=== PATIENT | male | born 1975 | race Caucasian/White ===

== ENCOUNTER 2020-02-01 18:56 | Emergency (ER) | payer BC, OTHER ==
[~2020-02-01] VITALS: Ht 177 cm; Wt 92.0 kg
--- OUTSIDE RECORDS SUMMARY | 2020-02-01 19:08 | XMS REPORT | Continuity of Care Document ---
Author Organization Unknown Address Unknown Phone Unavailable Allergies Active Description Code Type Severity Reaction Onset Reported/Identified Relationship to Patient Clinical Status Yes hydrocodone [id number] Drug Aller gy Unknown N/A 02/01/2020 Yes morphine [id number] Drug Allergy Unknown N/A 02/01/2020 Medications There is no data. Problems There is no data. Procedures There is no data. Results Test Result Range C-PEPTIDE, SERUM - 04/28/19 17:27 C-PEPTIDE 1.25 ng/mL 0.80-3.85 A1C - 04/28/19 17:27 HEMOGLOBIN A1c >14.0 % of total Hgb <5.7 Encounters ACCT No. Visit Date/Time Discharge Status Pt. Type Provider Facility Loc./Unit Complaint [id number] 01/28/2020 08:00:00 01/28/2020 23:59: 59 CLS Outpatient SELF, FRANCISCA Perez [facility] [id number] 04/28/2019 15:30:00 Document Registration [id number] 02/01/2020 18:57:[address] Emergency JUVE DE LA ROSA DO [facility] ER FS NAUSEA,DIZZY
--- NOTE | 2020-02-01 19:18 | ED General ---
General Chief Complaint: General Problems/Pain Stated Complaint: NAUSEA,DIZZY Source of Information: Patient Exam Limitations: No Limitations History of Present Illness Date Seen by Provider: Feb 01, 2020 Time Seen by Provider: 19:10 Initial Comments The patient is a 44-year-old male presents for evaluation of on and off lightheadedness for the last 2 weeks. He mentions that he had a few episodes of nausea and vomiting this morning but none since that time. He also states the right posterolateral neck has been sore for about a week but is improving. 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 He is diabetic and states that his sugars have been well controlled lately but earlier today was 280. He denies chest pain or shortness of breath, cough, loss of taste or smell, headache, neck stiffness, fevers or chills, abdominal discomfort, back or flank pain, urinary complaints, palpitations or syncope. He is alert and oriented 4, calm, and appears to be in no distress at this time. Timing/Duration: Other (1-2 weeks) Severity: Mild Associated Systoms: Nausea/Vomiting Allergies and Home Medications Allergies Coded Allergies: hydrocodone (Verified Allergy, Unknown, 02/01/20) morphine (Verified Allergy, Unknown, 02/01/20) Patient Home Medication List Home Medication List Reviewed: Yes Review of Systems Review of Systems Constitutional: no symptoms reported, dizziness (described as lightheadedness) EENTM: no symptoms reported Respiratory: no symptoms reported Cardiovascular: no symptoms reported Gastrointestinal: nausea, vomiting Genitourinary: no symptoms reported Musculoskeletal: no symptoms reported Skin: no symptoms reported Psychiatric/Neurological: No Symptoms Reported Hematologic/Lymphatic: No Symptoms Reported Immunological/Allergic: no symptoms reported All Other Systems Reviewed Negative Unless Noted: Yes Past Zrcmsfo-Rqczoh-Qhfair Hx Past Med/Social Hx: Reviewed Nursing Past Med/Soc Hx Patient Social History Alcohol Use: Denies Use Recreational Drug Use: No Type Used: Smokeless Tobacco 2nd Hand Smoke Exposure: No Recent Foreign Travel: No Contact w/Someone Who Travel: No Recent Hopitalizations: No Physical Abuse: No Sexual Abuse: No Past Medical History Surgeries: Yes Gallbladder Respiratory: No Cardiac: Yes High Cholesterol, Hypertension Neurological: No Genitourinary: No Gastrointestinal: No Musculoskeletal: No Endocrine: Yes Diabetes, Insulin dep HEENT: No Cancer: No Psychosocial: No Integumentary: No Blood Disorders: No Physical Exam Vital Signs Vital Signs - First Documented 02/01/20 19:06 Temp 36.9 Pulse 92 Resp 16 B/P (MAP) 188/111 (136) Pulse Ox 99 O2 Delivery Room Air Capillary Refill : Height, Weight, BMI Height: '" Weight: lbs. oz. kg; BMI Method: General Appearance: No Apparent Distress, WD/WN Eyes: Bilateral Eye Normal Inspection, Bilateral Eye PERRL, Bilateral Eye EOMI HEENT: PERRL/EOMI, Normal ENT Inspection, Pharynx Normal Neck: Full Range of Motion, Normal Inspection, Supple, Tender Lateral (patient tenderness to the right paraspinal muscles at approximately the level of C3 to 4 with a muscle spasm, no midline tenderness, full range of motion of the cervical spine is present) Respiratory: Lungs Clear, Normal Breath Sounds, No Accessory Muscle Use, No Respiratory Distress Cardiovascular: Regular Rate, Rhythm, No Edema, No Murmur, Normal Peripheral Pulses Gastrointestinal: Normal Bowel Sounds, Non Tender, Soft Extremity: Normal Capillary Refill, Normal Range of Motion, Non Tender, No Calf Tenderness Neurologic/Psychiatric: Alert, Oriented x3, No Motor/Sensory Deficits, Normal Mood/Affect Skin: Normal Color, Warm/Dry Progress/Results/Core Measures Suspected Sepsis SIRS Temperature: Pulse: Respiratory Rate: Laboratory Tests 02/01/20 19:19: White Blood Count 6.7 Blood Pressure / Mean: Laboratory Tests 02/01/20 19:19: Creatinine 0.95, Platelet Count 346, Total Bilirubin 0.2 Results/Orders Lab Results Laboratory Tests Test 02/01/20 19:15 02/01/20 19:19 Range/Units Urine Color YELLOW Urine Clarity CLEAR Urine pH 5.5 5-9 Urine Specific [place] 1.020 1.016-1.022 Urine Protein 2+ H NEGATIVE Urine Glucose (UA) 3+ H NEGATIVE Urine Ketones NEGATIVE NEGATIVE Urine Nitrite NEGATIVE NEGATIVE Urine Bilirubin NEGATIVE NEGATIVE Urine Urobilinogen 0.2 < = 1.0 MG/DL Urine Leukocyte Esterase NEGATIVE NEGATIVE Urine RBC (Auto) TRACE H NEGATIVE Urine RBC RARE /HPF Urine WBC NONE /HPF Urine Crystals NONE /LPF Urine Bacteria NONE /HPF Urine Casts NONE /LPF Urine Mucus NEGATIVE /LPF Urine Culture Indicated NO White Blood Count 6.7 4.3-11.0 10^3/uL Red Blood Count 5.13 4.35-5.85 10^6/uL Hemoglobin 14.9 13.3-17.7 G/DL Hematocrit 44 40-54 % Mean Corpuscular Volume 86 80-99 FL Mean Corpuscular Hemoglobin 29 25-34 PG Mean Corpuscular Hemoglobin Concent 34 32-36 G/DL Red Cell Distribution Width 12.6 10.0-14.5 % Platelet Count 346 130-400 10^3/uL Mean Platelet Volume 9.8 7.4-10.4 FL Neutrophils (%) (Auto) 57 42-75 % Lymphocytes (%) (Auto) 29 12-44 % Monocytes (%) (Auto) 9 0-12 % Eosinophils (%) (Auto) 5 0-10 % Basophils (%) (Auto) 2 0-10 % Neutrophils # (Auto) 3.8 1.8-7.8 X 10^3 Lymphocytes # (Auto) 1.9 1.0-4.0 X 10^3 Monocytes # (Auto) 0.6 0.0-1.0 X 10^3 Eosinophils # (Auto) 0.3 0.0-0.3 10^3/uL Basophils # (Auto) 0.1 0.0-0.1 10^3/uL Sodium Level 135 135-145 MMOL/L Potassium Level 5.0 3.6-5.0 MMOL/L Chloride Level 101 98-107 MMOL/L Carbon Dioxide Level 22 21-32 MMOL/L Anion Gap 12 5-14 MMOL/L Blood Urea Nitrogen 22 H 7-18 MG/DL Creatinine 0.95 0.60-1.30 MG/DL Estimat Glomerular Filtration Rate > 60 BUN/Creatinine Ratio 23 Glucose Level 302 H 70-105 MG/DL Calcium Level 9.5 8.5-10.1 MG/DL Corrected Calcium 9.6 8.5-10.1 MG/DL Total Bilirubin 0.2 0.1-1.0 MG/DL Aspartate Amino Transf (AST/SGOT) 16 5-34 U/L Alanine Aminotransferase (ALT/SGPT) 20 0-55 U/L Alkaline Phosphatase 61 40-136 U/L Total Protein 7.2 6.4-8.2 GM/DL Albumin 3.9 3.2-4.5 GM/DL Amylase Level 36 25-125 U/L Lipase 51 8-78 U/L My Orders Orders - RJ AN DO Amylase (02/01/20 18:57) Cbc With Automated Diff (02/01/20 18:57) Comprehensive Metabolic Panel (02/01/20 18:57) Lipase (02/01/20 18:57) Ua Culture If Indicated (02/01/20 18:57) Ed Iv/Invasive Line Start (02/01/20 18:57) Ekg Tracing (02/01/20 18:57) Continuous Ekg Monitoring (02/01/20 18:57) Vital Signs/I&O 02/01/20 19:06 Temp 36.9 Pulse 92 Resp 16 B/P (MAP) 188/111 (136) Pulse Ox 99 O2 Delivery Room Air Capillary Refill : Progress Note : Progress Note @2004 - patient updated on lab results which are acutely unremarkable other than some hyperglycemia. Advised the patient to follow up with his PCP in the next 1- 2 days and to return to the emergency Department immediately for new or worsening symptoms. The patient expresses verbal understanding and agreement with the plan and is stable for discharge. ECG Comment EKG@1909 - Normal sinus rhythm, rate of 87, left axis deviation present, no acute ischemic findings noted, no STEMI, reviewed and interpreted by myself Departure Impression Primary Impression: Lightheadedness Disposition: 01 HOME, SELF-CARE Condition: Stable Departure-Patient Inst. Decision time for Depature: 20:07 Referrals: FRANCISCA JOHNSON MD (PCP/Family) Primary Care Physician Patient Instructions: Dizziness, Nonvertigo, (DC) Add. Discharge Instructions: Drink plenty of fluids. Continue to take your prescribed medications. Follow-up with your doctor in the next 1-2 days. Return to the emergency Department immediately for new or worsening symptoms. RJ AN DO Feb 01, 2020 19:17
[2020-02-01 19:25] LABS: BILIRUBIN,URINE NEGATIVE (NEGATIVE); CLARITY,URINE CLEAR; COLOR,URINE YELLOW; GLUCOSE, URINE (UA) 3+ (NEGATIVE); KETONES,URINE NEGATIVE (NEGATIVE); LEUKOCYTE ESTERASE ,URINE NEGATIVE (NEGATIVE); NITRITE,URINE NEGATIVE (NEGATIVE); PH,URINE 5.5 (5-9); PROTEIN,URINE 2+ (NEGATIVE); RBC,URINE RARE /HPF
[2020-02-01 19:26] LABS: HEMATOCRIT 44 % (40-54); HEMOGLOBIN 14.9 G/DL (13.3-17.7); MEAN CORPUSCULAR HEMOGLOBIN 29 PG (25-34); MEAN CORPUSCULAR HGB CONC 34 G/DL (32-36); MEAN CORPUSCULAR VOLUME 86 FL (80-99); RED CELL DISTRIBUTION WIDTH 12.6 % (10.0-14.5); WHITE BLOOD COUNT 6.7 10^3/uL (4.3-11.0)
[2020-02-01 19:27] LABS: BASOPHILS # (AUTO) 0.1 10^3/uL (0.0-0.1); BASOPHILS % (AUTO) 2 % (0-10); EOSINOPHILS # (AUTO) 0.3 10^3/uL (0.0-0.3); EOSINOPHILS % (AUTO) 5 % (0-10); LYMPHOCYTES # (AUTO) 1.9 X 10^3 (1.0-4.0); LYMPHOCYTES % (AUTO) 29 % (12-44); MEAN PLATELET VOLUME 9.8 FL (7.4-10.4); MONOCYTES # (AUTO) 0.6 X 10^3 (0.0-1.0); MONOCYTES % (AUTO) 9 % (0-12); NEUTROPHILS # (AUTO) 3.8 X 10^3 (1.8-7.8); NEUTROPHILS % (AUTO) 57 % (42-75); PLATELET COUNT 346 10^3/uL (130-400)
[2020-02-01 19:59] LABS: CHLORIDE 101 MMOL/L (98-107); SODIUM 135 MMOL/L (135-145)
[2020-02-01 20:00] LABS: ALANINE AMINOTRANSFERASE 20 U/L (0-55); ALBUMIN 3.9 GM/DL (3.2-4.5); ALKALINE PHOSPHATASE 61 U/L (40-136); AMYLASE 36 U/L (25-125); BILIRUBIN,TOTAL 0.2 MG/DL (0.1-1.0); BUN/CREATININE RATIO 23; CALCIUM 9.5 MG/DL (8.5-10.1); CARBON DIOXIDE 22 MMOL/L (21-32); CREATININE SERUM 0.95 MG/DL (0.60-1.30); GFR ESTIMATED > 60; GLUCOSE 302 MG/DL (70-105); LIPASE 51 U/L (8-78); TOTAL PROTEIN 7.2 GM/DL (6.4-8.2)
[2020-02-01 20:19] VITALS: BP 117/79
== END 2020-02-01 20:20 | disposition home or self-care (01) ==
LOC: ER FS 18:57
DX: R42 Dizziness and giddiness (principal); E11.65 Type 2 diabetes mellitus with hyperglycemia; Z79.4 Long term (current) use of insulin; E78.00 Pure hypercholesterolemia, unspecified; I10 Essential (primary) hypertension; Z88.5 Allergy status to narcotic agent
CPT/HCPCS: 36415; 80053; 81000; 82150; 83690; 85025; 93005

== ENCOUNTER → 2020-02-11 | Outpatient (CLI) | payer BC ==
[~2020-02-11] MED LIST: GADOBUTROL 10 MMOL/10 ML (GADAVIST) VIAL IV ONE
--- NOTE | 2020-02-11 14:56 | Diagnostic Imaging Report ---
PROCEDURE: MR imaging of the brain with and without contrast. TECHNIQUE: Multiplanar, multisequence MR imaging of the brain was performed with and without contrast. Additional dedicated sequences of the internal auditory canals was performed. INDICATION: Dizzy spells. Headaches. Ringing in the ears. COMPARISON: None. Findings: No acute ischemia, mass, or hemorrhage. No abnormal enhancement. The ventricles, cortical sulci, and basilar cisterns are symmetric and unremarkable. The sellar and suprasellar regions have a normal appearance. The major intracranial flow voids are intact. The internal auditory canals are symmetric and unremarkable. The course of the 7th and 8th cranial nerves is normal without evidence of abnormal enhancement. No evidence of CPA mass. The bilateral inner ear structures have a normal MR appearance. The cavernous sinuses and Meckel's caves are normal in appearance. The brainstem and posterior fossa are unremarkable. Mild mucosal thickening is seen in the ethmoid sinuses, right frontal sinus, and right maxillary sinus. The mastoid air cells demonstrate normal signal characteristics. The globes and orbits are symmetric and unremarkable. The scalp and calvarium have a normal appearance. IMPRESSION: 1. No acute ischemia, mass, or hemorrhage. No abnormal enhancement. 2. Unremarkable appearance of the 7th and 8th cranial nerves. No evidence of abnormal enhancement or CPA mass. 3. Mild paranasal sinus disease. Dictated by: Dictated on workstation # [id number]
== END ==
LOC: CARD 12:23
PROVIDERS: ATTEND Family Medicine
DX: J32.8 Other chronic sinusitis (principal); H93.19 Tinnitus, unspecified ear; G45.9 Transient cerebral ischemic attack, unspecified
CPT/HCPCS: 70553; 93306

== ENCOUNTER 2022-06-30 10:58 | Emergency (ER) | payer BC ==
[~2022-06-30] VITALS: Ht 177 cm; Wt 100.0 kg
[2022-06-30 11:13] VITALS: BP 231/126
[2022-06-30] MEDS ORDERED: ONDANSETRON 4 MG/2 ML (SDV) Z0FRAN IVP ONE (11:15)
[2022-06-30] MEDS ORDERED: fentaNYL INJ 100 MCG/2 ML AMP IVP PRN (11:15)
[2022-06-30] MEDS ORDERED: LABETALOL HCL 20 MG/4 ML VIAL IV ONE ×3 (11:15→13:00)
[2022-06-30 11:19] LABS: BASOPHILS # (AUTO) 0.1 10^3/uL (0.0-0.1); BASOPHILS % (AUTO) 1 % (0-10); EOSINOPHILS # (AUTO) 0.2 10^3/uL (0.0-0.3); EOSINOPHILS % (AUTO) 4 % (0-10); HEMATOCRIT 42 % (40-54); LYMPHOCYTES % (AUTO) 16 % (12-44); MEAN CORPUSCULAR HEMOGLOBIN 29 pg (25-34); MEAN CORPUSCULAR HGB CONC 34 g/dL (32-36); MEAN CORPUSCULAR VOLUME 87 fL (80-99); MEAN PLATELET VOLUME 9.2 fL (9.0-12.2); MONOCYTES # (AUTO) 0.7 10^3/uL (0.0-1.0); MONOCYTES % (AUTO) 11 % (0-12); NEUTROPHILS # (AUTO) 4.3 10^3/uL (1.8-7.8); NEUTROPHILS % (AUTO) 68 % (42-75); PLATELET COUNT 301 10^3/uL (130-400); WHITE BLOOD COUNT 6.3 10^3/uL (4.3-11.0)
[2022-06-30 11:36] LABS: ALANINE AMINOTRANSFERASE 55 U/L (0-55); ALKALINE PHOSPHATASE 89 U/L (40-136); BILIRUBIN,TOTAL < 0.2 MG/DL (0.1-1.0); BUN/CREATININE RATIO 15; CALCIUM 8.3 MG/DL (8.5-10.1); CARBON DIOXIDE 17 MMOL/L (21-32); CHLORIDE 111 MMOL/L (98-107); CREATININE SERUM 2.39 MG/DL (0.60-1.30); GFR ESTIMATED 33; GLUCOSE 182 MG/DL (70-105); POTASSIUM 4.5 MMOL/L (3.6-5.0); SODIUM 140 MMOL/L (135-145); TOTAL PROTEIN 6.8 GM/DL (6.4-8.2)
--- NOTE | 2022-06-30 11:37 | Diagnostic Imaging Report ---
CHEST 1 VIEW AP/PA ONLY Indication: Chest pain. Comparison: None available. Findings: No focal airspace disease in the visualized lungs. No pleural effusion or pneumothorax. Normal cardiomediastinal silhouette. Impression: 1. No acute cardiopulmonary process by portable radiography. Dictated by: Dictated on workstation # [id number]
[2022-06-30] MEDS ORDERED: NS IV 1000 ML 1,000 ML IV SCH (12:00)
[2022-06-30] MEDS ORDERED: CATHETER FLUSH 10 ML SYR IV PRN (12:30)
[2022-06-30] MEDS ORDERED: IOHEXOL 350 MG/ML 100 ML (OMNIPAQUE 350) VIAL IV ONE (12:30)
[2022-06-30] MEDS ORDERED: HOLD METFORMIN - RECEIVED CONTRAST 20 ML VIAL IV SCH (12:30)
[2022-06-30] MEDS ORDERED: NS 100 ML (IVPB) BAG IV ONE (12:30)
--- NOTE | 2022-06-30 13:14 | ED Chest Pain ---
General Chief Complaint: Chest Pain Stated Complaint: CHEST PAIN Nursing Triage Note: Patient has presented to ER with cc of chest pain. He states that for the past week he has had right side neck pain that had spread into his right shoulder and upper right chest. 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 Source: patient Exam Limitations: no limitations History of Present Illness Date Seen by Provider: Jun 30, 2022 Time Seen by Provider: 13:00 Initial Comments Patient is a 46-year-old male who presents with chest pain, neck pain starting earlier this morning. Patient reports pain to the right side of his neck going to his right shoulder and right upper chest. 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 Pain is worse with palpation and movement. He denies shortness of breath, headache, nausea vomiting or sweats. Patient has history of diabetes hypertension and dyslipidemia. He does not routinely seek medical care and has not taken any medication past 24 hours. Blood pressures noted to be 220s over 120s. Patient states his blood pressure normally runs high. No other acute symptoms or complaints. Patient is a non-smoker Timing/Duration: 24 hours Severity/Quality: severe Location: other Radiation: other Activities at Onset: other Prior CP/Workup: other Modifying Factors: improves with other ASA po GLAZIER APPRENTICE: No NTG SL GLAZIER APPRENTICE: No Associated Symptoms: back pain Allergies and Home Medications Allergies Coded Allergies: hydrocodone (Verified Allergy, Unknown, 02/01/20) morphine (Verified Allergy, Unknown, 02/01/20) Patient Home Medication List Home Medication List Reviewed: Yes Review of Systems Review of Systems Constitutional: see HPI EENTM: See HPI Respiratory: See HPI Cardiovascular: See HPI Gastrointestinal: See HPI Genitourinary: See HPI Musculoskeletal: see HPI Skin: see HPI Psychiatric/Neurological: See HPI Endocrine: See HPI Hematologic/Lymphatic: See HPI All Other Systems Reviewed Negative Unless Noted: No Past Tltsnvj-Wwcqmb-Ofhfwn Hx Patient Social History Tobacco Use?: Yes Use of E-Cig and/or Vaping dev: No Substance use?: No Alcohol Use?: No Past Medical History Surgeries: Yes Gallbladder Respiratory: No Cardiac: Yes High Cholesterol, Hypertension Neurological: No Genitourinary: No Gastrointestinal: No Musculoskeletal: No Endocrine: Yes Diabetes, Insulin dep HEENT: No Cancer: No Psychosocial: No Integumentary: No Blood Disorders: No Physical Exam Vital Signs Vital Signs - First Documented 06/30/22 11:13 Temp 35.6 Pulse 91 Resp 16 B/P (MAP) 231/126 (161) Pulse Ox 100 O2 Delivery Room Air Capillary Refill : Height, Weight, BMI Height: '" Weight: lbs. oz. kg; 31.00 BMI Method: General Appearance: No Apparent Distress, WD/WN, Anxious HEENT: PERRL/EOMI, TMs Normal, Normal ENT Inspection, Pharynx Normal Neck: Full Range of Motion Respiratory: Chest Non Tender, Lungs Clear, Normal Breath Sounds Cardiovascular: Regular Rate, Rhythm, No Edema, No Gallop Gastrointestinal: Non Tender, Soft Neurologic/Psychiatric: Alert, Oriented x3 Skin: Normal Color, Warm/Dry Lymphatic: No Adenopathy Focused Exam Sepsis Stage: Ruled Out Progress/Results/Core Measures Results/Orders Lab Results Laboratory Tests Test 06/30/22 11:12 Range/Units White Blood Count 6.3 4.3-11.0 10^3/uL Red Blood Count 4.82 4.30-5.52 10^6/uL Hemoglobin 14.0 13.3-17.7 g/dL Hematocrit 42 40-54 % Mean Corpuscular Volume 87 80-99 fL Mean Corpuscular Hemoglobin 29 25-34 pg Mean Corpuscular Hemoglobin Concent 34 32-36 g/dL Red Cell Distribution Width 13.3 10.0-14.5 % Platelet Count 301 130-400 10^3/uL Mean Platelet Volume 9.2 9.0-12.2 fL Immature Granulocyte % (Auto) 0 % Neutrophils (%) (Auto) 68 42-75 % Lymphocytes (%) (Auto) 16 12-44 % Monocytes (%) (Auto) 11 0-12 % Eosinophils (%) (Auto) 4 0-10 % Basophils (%) (Auto) 1 0-10 % Neutrophils # (Auto) 4.3 1.8-7.8 10^3/uL Lymphocytes # (Auto) 1.0 1.0-4.0 10^3/uL Monocytes # (Auto) 0.7 0.0-1.0 10^3/uL Eosinophils # (Auto) 0.2 0.0-0.3 10^3/uL Basophils # (Auto) 0.1 0.0-0.1 10^3/uL Immature Granulocyte # (Auto) 0.0 0.0-0.1 10^3/uL D-Dimer 1.43 H 0.00-0.49 UG/ML Sodium Level 140 135-145 MMOL/L Potassium Level 4.5 3.6-5.0 MMOL/L Chloride Level 111 H 98-107 MMOL/L Carbon Dioxide Level 17 L 21-32 MMOL/L Anion Gap 12 5-14 MMOL/L Blood Urea Nitrogen 35 H 7-18 MG/DL Creatinine 2.39 H 0.60-1.30 MG/DL Estimat Glomerular Filtration Rate 33 BUN/Creatinine Ratio 15 Glucose Level 182 H 70-105 MG/DL Calcium Level 8.3 L 8.5-10.1 MG/DL Corrected Calcium 9.1 8.5-10.1 MG/DL Total Bilirubin < 0.2 0.1-1.0 MG/DL Aspartate Amino Transf (AST/SGOT) 43 H 5-34 U/L Alanine Aminotransferase (ALT/SGPT) 55 0-55 U/L Alkaline Phosphatase 89 40-136 U/L Troponin I < 0.30 <0.30 NG/ML Pro-B-Type Natriuretic Peptide 4764.0 H <125.0 PG/ML Total Protein 6.8 6.4-8.2 GM/DL Albumin 3.0 L 3.2-4.5 GM/DL My Orders Orders - DAVINA ARGUETA DO Cbc With Automated Diff (06/30/22 11:11) Comprehensive Metabolic Panel (06/30/22 11:11) Ekg Tracing (06/30/22 11:11) Troponin I Fs (06/30/22 11:11) Chest 1 View Ap/Pa Only (06/30/22 11:11) Probnp Fs (06/30/22 11:11) Fibrin Degradation Products (06/30/22 11:11) Labetalol Injection (Normodyne Injection (06/30/22 11:15) Ondansetron Injection (Zofran Injectio (06/30/22 11:15) Fentanyl Inj (Sublimaze Injection) (06/30/22 11:15) Labetalol Injection (Normodyne Injection (06/30/22 12:00) Ns Iv 1000 Ml (Sodium Chloride 0.9%) (06/30/22 12:00) Iohexol Injection (Omnipaque 350 Mg/Ml 1 (06/30/22 12:30) Received Contrast (Hold Metformin- Contr (06/30/22 12:30) Sodium Chloride Flush (Catheter Flush Sy (06/30/22 12:30) Ns (Ivpb) (Sodium Chloride 0.9% Ivpb Bag (06/30/22 12:30) Labetalol Injection (Normodyne Injection (06/30/22 13:00) Ct Angio Chst/Abd/Pelv W Wo (06/30/22 11:49) Medications Given in ED Current Medications Medications Dose Ordered Sig/Gil Route Start Time Stop Time Status Last Admin Dose Admin Fentanyl Citrate 50 mcg Q1H PRN IVP 06/30/22 11:15 06/30/22 11:21 50 MCG Iohexol 75 ml ONCE ONCE IV 06/30/22 12:30 06/30/22 12:31 DC 06/30/22 13:26 100 ML Labetalol HCl 20 mg ONCE ONCE IV 06/30/22 11:15 06/30/22 11:16 DC 06/30/22 11:27 20 MG Labetalol HCl 20 mg ONCE ONCE IV 06/30/22 12:00 06/30/22 12:01 DC 06/30/22 12:51 20 MG Labetalol HCl 20 mg ONCE ONCE IV 06/30/22 13:00 06/30/22 13:01 DC 06/30/22 13:33 20 MG Ondansetron HCl 4 mg ONCE ONCE IVP 06/30/22 11:15 06/30/22 11:16 DC 06/30/22 11:21 4 MG Sodium Chloride 10 ml NEEDED PRN IV 06/30/22 12:30 06/30/22 13:26 10 ML Sodium Chloride 100 ml ONCE ONCE IV 06/30/22 12:30 06/30/22 12:31 DC 06/30/22 13:26 100 ML Vital Signs/I&O 06/30/22 11:13 Temp 35.6 Pulse 91 Resp 16 B/P (MAP) 231/126 (161) Pulse Ox 100 O2 Delivery Room Air Blood Pressure Mean: 161 Departure Communication (Admissions) Chest x-ray: No acute findings per radiology report CTA chest abdomen pelvis: No acute findings per radiology report. Patient with left accelerated hypertension chest pain, congestive heart failure, renal injury in the setting of medical noncompliance. Patient with aggressive blood pressure treatment in the emergency department with relief of chest pain and neck pain. Hospital admission strongly recommended for evaluation possible coronary syndrome, congestive cardiomyopathy, valvular heart disease, renal impairment and blood pressure control. Risks versus benefits versus alternatives of hospital admission explained to the patient in detail. He verbalizes understanding and risk of going home from the emergency department without further medical evaluation and assumes all risks. He is instructed to resume his home medications follow-up with his PCP for review of the ER visit and further management of blood pressure and appropriate subspecialty referral. Patient verbalizes responsibility upon leaving the emergency department. He is is further instructed to return to the emergency department should he change his mind or his symptoms return. Patient discharged from the ED AGAINST MEDICAL ADVICE upon his request. Impression Primary Impression: Chest pain Additional Impressions: Accelerated hypertension Congestive heart failure Renal failure Hyperglycemia Noncompliance with medications Disposition: 07 AGAINST MEDICAL ADVICE Condition: Against Medical Advice Departure-Patient Inst. Decision time for Depature: 14:25 Referrals: FRANCISCA JOHNSON MD (PCP) Primary Care Physician Patient Instructions: High Blood Pressure in Adults, Chest Pain (DC), Kidney Failure (DC) Add. Discharge Instructions: You were evaluated in the emergency department for chest pain, neck pain and high blood pressure. Since you have declined further care in the emergency department, it is important that you resume all your home medication as currently scheduled, follow-up with your PCP in the office in the next 1 to 2 days for review ED visit and further management. In the meantime if you develop new or worsening symptoms or change your mind regarding hospital admission, return to the emergency department. All discharge instructions reviewed with patient and/or family. Voiced understanding. DAVINA ARGUETA DO Jun 30, 2022 13:14
--- NOTE | 2022-06-30 14:01 | Diagnostic Imaging Report ---
PROCEDURE: CT angiography of the chest with and without contrast and CT of the abdomen and pelvis with and without contrast. TECHNIQUE: Non contrast-enhanced helical images were obtained through the chest, abdomen and pelvis. Contrast-enhanced thin section helical images were obtained through the chest, abdomen and pelvis with intravenous contrast timed for the optimal opacification of the arterial structures per departmental CTA protocol. Post-processing, retro reconstructions and interpretation of angiographic images of the vessels was performed. 3D MIP reconstructions were performed and reviewed. Auto Exposure Controls were utilized during the CT exam to meet ALARA standards for radiation dose reduction. INDICATION: Hypertension and chest pain. COMPARISON: None available. FINDINGS: Normal-caliber thoracic and abdominal aorta. There is no intramural hematoma, dissection, or penetrating atherosclerotic ulcer. 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 No pulmonary emboli. The heart is normal in size without pericardial effusion. Moderate coronary artery calcifications are present. No abnormality in the trachea. There is no pneumonia or edema. Linear atelectasis within the middle lobe. No suspicious pulmonary nodules. No intrathoracic lymphadenopathy. No free intraperitoneal air or fluid. The liver, spleen, pancreas, and adrenals are normal. No solid renal mass or obstructive uropathy. Urinary bladder is moderately distended without wall thickening. Prostate is not enlarged. No bowel obstruction or pericolonic inflammatory change. Stomach is partially filled with fluid and air and has no wall thickening. No concerning focal osseous lesions. IMPRESSION: 1. No aortic aneurysm or acute aortic syndrome. 2. No other acute abnormality in the chest, abdomen, or pelvis. Dictated by: Dictated on workstation # [id number]
== END 2022-06-30 14:25 | disposition left against medical advice (07) ==
LOC: EDUNIT# 10:58 → ER FS 10:59
DX: I11.0 Hypertensive heart disease with heart failure (principal); I50.9 Heart failure, unspecified; N19 Unspecified kidney failure; E11.65 Type 2 diabetes mellitus with hyperglycemia; T46.5X6A Underdosing of other antihypertensive drugs, initial encounter; Z91.138 Patient's unintentional underdosing of medication regimen for other reason; Z88.5 Allergy status to narcotic agent
CPT/HCPCS: 36415; 71045; 71275; 74174; 80053; 83880; 84484; 85025; 85379; 93005; Q9967

== ENCOUNTER 2022-11-08 08:35 | Outpatient (CLI) | payer BC ==
[~2022-11-08] VITALS: Ht 180 cm; Wt 95.5 kg
[2022-11-12] MEDS ORDERED: GABA-486 PO (12:12)
[2022-11-12] MEDS ORDERED: LISI40TA9 PO (12:12)
[2022-11-12] MEDS ORDERED: INSU100I14 SQ (12:12)
[2022-11-12] MEDS ORDERED: CHLO25TA22 PO (12:12)
[2022-11-12] MEDS ORDERED: ATOR40TA PO (12:12)
[2022-11-12] MEDS ORDERED: INSU100I32 SQ (12:12)
[2022-11-12] MEDS ORDERED: CANA300T PO (12:12)
[2022-11-12] MEDS ORDERED: INSU100I34 SQ (12:12)
[2022-11-12] MEDS ORDERED: AMLO-251 PO (12:13)
[2022-11-12] MEDS ORDERED: TRM50T PO (12:13)
== END 2022-11-12 12:19 | disposition home or self-care (01) ==
LOC: PREOP 08:35
PROVIDERS: ATTEND Orthopaedic Surgery
DX: Z01.818 Encounter for other preprocedural examination (principal)

== ENCOUNTER 2022-11-14 08:57 | Day surgery (SDC) | payer BC ==
--- NOTE | 2022-10-22 18:50 | HISTORY AND PHYSICAL ---
ADMISSION HISTORY AND PHYSICAL This will be for outpatient surgery on 10/31/2022 for right rotator cuff repair. HISTORY OF PRESENT ILLNESS: The patient is a 47-year-old right hand dominant gentleman with complaints of progressively worsening right shoulder pain. He had undergone an MRI, which reveals a full-thickness supraspinatus tear. He reports a several-year history of progressively worsening right shoulder pain and weakness. He reports over the last month, it has gotten much worse with weakness. He works as a rancher/hall. He denies neck pain and denies paresthesias. Due to functional impairment and failure to improve with conservative measures, the patient elected to proceed with surgical intervention. REVIEW OF SYSTEMS: No chest pain, no shortness of breath. No dysuria. PAST MEDICAL HISTORY: Diabetes, tendon injury to the finger, hyperlipidemia, cholecystitis, cellulitis, hypertension, left forearm abscess, history of cystitis, history of diabetic ketoacidosis, pyelonephritis, hyponatremia, chronic kidney disease. PAST SURGICAL HISTORY: Lumbar right ring finger tendon, cholecystectomy and abscess, irrigation and debridement. FAMILY HISTORY: Significant for diabetes. SOCIAL HISTORY: The patient chews one can of tobacco a day. Denies alcohol use. ALLERGIES: HYDROCODONE AND MORPHINE. PHYSICAL EXAMINATION: GENERAL: The patient is well-developed, well-nourished, in no acute distress. HEENT: Normocephalic, atraumatic. Pupils are equal, round and reactive to light. Oropharynx is clear. NECK: Supple. No lymphadenopathy. LUNGS: Clear to auscultation bilaterally. HEART: Regular rate and rhythm. ABDOMEN: Soft, nontender, nondistended. EXTREMITIES: The right shoulder demonstrates active forward elevation of 90 degrees, external rotation 70 degrees, internal rotation to his lower lumbar spine. He has a positive drop arm test, positive Neer's and positive Chicas sign, negative Spurling's. He has weakness with abduction and external rotation. IMPRESSION: Right rotator cuff tear. PLAN: Right shoulder arthroscopy with open rotator cuff repair. The risks, benefits, options, ramifications and recovery have been discussed at length with the patient. He understands and wishes to proceed. Job ID: [id number] DocumentID: [id number] Dictated Date: 10/11/2022 08:17:47 Rolfer Date: 10/11/2022 10:13:00 Dictated By: NADJA PEGUERO MD
--- NOTE | 2022-10-26 13:52 | HISTORY AND PHYSICAL ---
DATE OF SERVICE: 11/14/2022 ADMISSION HISTORY AND PHYSICAL This will be for outpatient surgery on 11/14/2022 for right rotator cuff repair. HISTORY OF PRESENT ILLNESS: The patient is a 47-year-old gentleman with progressively worsening right shoulder pain. He underwent an MRI, which revealed a full-thickness supraspinatus tear. He reports several year history of progressively worsening shoulder pain and weakness. He reports over the last 2 months, it has gotten much worse with weakness. He works as a rancher/hall. He denies neck pain and denies paresthesias. Due to functional impairment and failure to improve with conservative measures, the patient elected to proceed with surgical intervention. REVIEW OF SYSTEMS: No chest pain, no shortness of breath. No dysuria. PAST MEDICAL HISTORY: Type 1 diabetes, hyperlipidemia, cholecystitis, hypertension, history of MRSA abscess of the left forearm, diabetic ketoacidosis pyelonephritis, hyponatremia, chronic kidney disease. PAST SURGICAL HISTORY: Lumbar right ring finger tendon repair, cholecystectomy and abscess irrigation and debridement. FAMILY HISTORY: Significant for diabetes. SOCIAL HISTORY: The patient chews one can of tobacco per day. ALLERGIES: HYDROCODONE AND MORPHINE. PHYSICAL EXAMINATION: GENERAL: The patient is well-developed, well-nourished, in no acute distress. HEENT: Normocephalic, atraumatic. Pupils are equal, round and reactive to light. Oropharynx is clear. NECK: Supple. No lymphadenopathy. LUNGS: Clear to auscultation bilaterally. HEART: Regular rate and rhythm. ABDOMEN: Soft, nontender, nondistended. EXTREMITIES: His right shoulder demonstrates active forward elevation of 90 degrees, external rotation of 70 degrees, internal rotation is to his lower lumbar spine. He has a positive drop arm test, positive Neer's and positive Chicas sign. Negative Spurling's maneuver and weakness with abduction and external rotation. IMPRESSION: Right rotator cuff tear. PLAN: Right shoulder arthroscopy with open rotator cuff repair. The risks, benefits, options, ramifications and recovery have been discussed at length with the patient. He understands and wishes to proceed. Job ID: [id number] DocumentID: [id number] Dictated Date: 10/26/2022 10:49:51 Real Time Operator Date: 10/26/2022 13:49:00 Dictated By: NADJA PEGUERO MD
[2022-11-14] VITALS (11 sets, daily range): BP systolic 115–188; BP diastolic 63–108
[~2022-11-14] VITALS: Ht 180 cm; Wt 95.5 kg
[~2022-11-14 08:57] MED LIST changes: +AMLO-251 PO; +ATOR40TA PO; +CANA300T PO; +CHLO25TA22 PO; +GABA-486 PO; -GADOBUTROL 10 MMOL/10 ML (GADAVIST) VIAL IV ONE; +INSU100I14 SQ; +INSU100I32 SQ; +INSU100I34 SQ; +LISI40TA9 PO; +TRM50T PO; +oxyCODONE/APAP 5/325MG (PERCOCET 5) TABLET PO PRN
--- NOTE | 2022-11-14 09:17 | Progress Note-Pre Operative ---
Pre-Operative Progress Note Date of Available H&P: Oct 26, 2022 Date H&P Reviewed: Nov 14, 2022 Time H&P Reviewed: 07:11 Changes from last HP none Pre-Operative Diagnosis: right rotator cuff tear NADJA PEGUERO MD Nov 14, 2022 09:17
--- NOTE | 2022-11-14 09:18 | Progress Note-Post Operative ---
Post-Operative Progess Note Surgeon (s)/Cost Engineer (s) Surgeon NADJA PEGUERO MD Cost Engineer: Gatito Muñoz Pre-Operative Diagnosis right chronic rotator cuff tear Post-Operative Diagnosis right chronic rotator cuff tear and labral tear Procedure & Operative Findings Date of Procedure 11/14/22 Procedure Performed/Findings right shoulder arthroscopic labral debridement,acromioplasty and open rotator cuff repair Anesthesia Type GETA Estimated Blood Loss Estimated blood loss (mL): minimal Specimens/Packing Specimens Removed none Packing: none NADJA PEGUERO MD Nov 14, 2022 09:18
[2022-11-14] MEDS ORDERED: MIDAZOLAM 2 MG/2 ML (VERSED) VIAL ONE ×2 (09:24→10:33)
[2022-11-14] MEDS ORDERED: ROPIVACAINE 5MG/ML 30ML VIAL ONE (09:24)
[2022-11-14] MEDS ORDERED: morphine PF (DURAMORPH) 10 MG/10 ML AMP ONE (09:55)
[2022-11-14] MEDS ORDERED: BUPIVACAINE 0.5% 30 ML (SENSORCAINE) VIAL ONE (09:55)
[2022-11-14] MEDS ORDERED: BUPIVACAINE 0.25% 30 ML (SENSORCAINE) VIAL ONE (09:58)
[2022-11-14] MEDS ORDERED: ceFAZolin INJECTION 2,000 MG in NS (IVPB) 50 ML IV ONE (10:00)
[2022-11-14] MEDS ORDERED: LACTATED RINGERS 1,000 ML IV PRN (10:00)
[2022-11-14] MEDS ORDERED: proPOfol 200 MG/20 ML (DIPRIVAN) VIAL IV ONE (10:33)
[2022-11-14] MEDS ORDERED: SEVOFLURANE (ULTANE) 15 ML INHAL SOLN ONE ×2 (10:33→11:40)
[2022-11-14] MEDS ORDERED: fentaNYL INJ 100 MCG/2 ML AMP ONE (10:33)
[2022-11-14] MEDS ORDERED: LIDOCAINE PF 2% 5 ML (XYLOCAINE) VIAL ONE (10:33)
[2022-11-14] MEDS ORDERED: ONDANSETRON 4 MG/2 ML (SDV) Z0FRAN ONE (10:33)
[2022-11-14] MEDS ORDERED: ROCURONIUM 50 MG/5 ML (ZEMURON) VIAL IV ONE (10:33)
[2022-11-14] MEDS ORDERED: PHENYLEPHRINE 100 MCG/ML 10 ML (ANESTHESIA) SYR ONE (11:10)
[2022-11-14] MEDS ORDERED: GLYCOPYRROLATE 0.2 MG/ML (ROBINUL) 2 ML VIAL ONE (11:26)
[2022-11-14] MEDS ORDERED: NEOSTIGMINE (BLOXIVERZ ) 1 MG/1ML 10 ML VIAL ONE (11:26)
[2022-11-14] MEDS ORDERED: KETOROLAC 30 MG/ML VIAL ONE (11:31)
[2022-11-14] MEDS ORDERED: DEXTROSE 50% 50 ML (IMS) SYR ONE (11:55)
[2022-11-14] MEDS ORDERED: DEXTROSE 50% 50 ML (IMS) SYR IV ONE (12:00)
[2022-11-14] MEDS ORDERED: ONDANSETRON 4 MG/2 ML (SDV) Z0FRAN IVP PRN (12:00)
[2022-11-14] MEDS ORDERED: fentaNYL INJ 100 MCG/2 ML AMP IVP ONE (12:00)
--- NOTE | 2022-11-14 20:31 | OPERATIVE REPORT ---
DATE OF SERVICE: 11/14/2022 PREOPERATIVE DIAGNOSES: 1. Right shoulder chronic rotator cuff tear. 2. Right shoulder labral tear. POSTOPERATIVE DIAGNOSES: 1. Right shoulder chronic rotator cuff tear. 2. Right shoulder labral tear. PROCEDURES: 1. Right shoulder open rotator cuff repair. 2. Right shoulder arthroscopic labral debridement. 3. Right shoulder arthroscopic acromioplasty. SURGEON: Lio Peguero MD SPORTS EQUIPMENT REPAIRER: Gatito Muñoz, who assisted throughout the procedure and closed the incisions. ANESTHESIA: General endotracheal by Jv Campos CRNA. ESTIMATED BLOOD LOSS: Minimal. DRAINS: None. COMPLICATIONS: None. POSTOPERATIVE PLAN: Sling wear and passive range of motion for 4 weeks. The patient was transferred to the recovery room awake and in stable condition. STATEMENT OF MEDICAL NECESSITY: The patient is a 47-year-old gentleman with longstanding right shoulder pain and weakness. An MRI was obtained, which revealed a full-thickness supraspinatus tear. In addition, there was labral pathology noted on his MRI. He had tried rest, activity modifications, and anti-inflammatories without relief. Due to functional impairment and failure to improve with conservative measures, the patient elected to proceed with surgical intervention. Examination under anesthesia revealed forward elevation 170 degrees, external rotation of 90 degrees and the internal rotation 70 degrees. Arthroscopic findings demonstrated a 1 x 1 cm full-thickness supraspinatus tear. The biceps anchor was absent. There was a large stump remnant and fraying of the adjacent labrum. The remainder of the labrum was intact. There was no significant glenoid or humeral head articular wear. The subacromial space demonstrated dense bursitis with sloping of the anterolateral acromion. DESCRIPTION OF PROCEDURE: After risks and benefits of the procedure were discussed and questions were answered and informed consent was signed and placed on the chart, the operative site was confirmed in the preoperative holding area and initialed by surgeon. The patient was then transported to the operating room and after adequate levels of general endotracheal anesthetic were obtained, a timeout was called, confirming the operative site. The right shoulder and upper extremity were prepped and draped in the usual sterile fashion. The shoulder joint was injected with 20 mL of fluid as well as subacromial space. A standard posterior portal was placed and under direct visualization, anterior portal was created in the interval between biceps, subscapularis and glenoid. A diagnostic arthroscopy was carried out with the above findings noted. The biceps stump was debrided with a shaver and the anterior labral flap was debrided with a shaver back to a stable edge. Scope was then redirected into the subacromial space. Lateral portal was created and a bursectomy was performed. The acromion was planed to a flat type 1 acromion. The shoulder joint was copiously irrigated. The portal sites were closed with 4-0 nylon in simple interrupted fashion. A lateral portal was then extended and the deltoid was split in line with the fibers leaving attached to the acromion. A single corkscrew anchor was placed just off the articular surface and a modified Jesus-Marcus repair was performed with excellent repair obtained. No undue tension was noted with the [ ] [ ]. The wound was copiously irrigated. The deltoid was repaired in a [id number] fashion using #2 FiberWire in [id number] interrupted fashion. The wound was further irrigated, 3-0 Vicryl was used for the superficial subcutaneous layers. The skin was closed with 4-0 nylon in running alternating horizontal mattress fashion. The incisions were infiltrated with plain Marcaine. A soft dressing was applied and the patient was transferred to the recovery room awake and in stable condition. Job ID: [id number] DocumentID: [id number] Dictated Date: 11/14/2022 11:40:36 Rotary Shear Operator Date: 11/14/2022 20:29:00 Dictated By: LIO PEGUERO MD
== END 2022-11-14 14:05 | disposition home or self-care (01) ==
LOC: SDC 08:57
PROVIDERS: ATTEND Orthopaedic Surgery
DX: M75.101 Unspecified rotator cuff tear or rupture of right shoulder, not specified as traumatic (principal); S43.491A Other sprain of right shoulder joint, initial encounter; E66.9 Obesity, unspecified; Z68.30 Body mass index [BMI] 30.0-30.9, adult
CPT/HCPCS: 23412; 29822; 29826; 82947; 87081; C1713